=== PATIENT | female | born 1995 | race Caucasian/White ===

== ENCOUNTER → 2021-08-18 17:57 | Outpatient (CLI) | payer OTHER, SELFPAY ==
[2021-08-18 18:46] LABS: COVID19 -Nasal RAPID Negative (Negative)
== END ==
PROVIDERS: Visit Provider Physician Assistant
DX: R06.02 Shortness of breath (principal); Z20.822 Contact with and (suspected) exposure to COVID-19
CPT/HCPCS: 87635